=== PATIENT | female | born 1970 | race Caucasian/White ===

== ENCOUNTER 2016-09-24 07:31 | Outpatient (RCR) | payer MEDICARE, OTHER ==
[2016-08-14 12:44] VITALS: BP 108/78
[2016-08-14 13:24] LABS: MEAN PLATELET VOLUME 10.7 FL (7.4-10.4); RED BLOOD COUNT 4.26 10^6/uL (4.35-5.85); RED CELL DISTRIBUTION WIDTH 13.1 % (10.0-14.5); WHITE BLOOD COUNT 11.5 10^3/uL (4.3-11.0)
[2016-08-14] MEDS: CATHETER FLUSH 10 ML SYR IV PRN ×2 (13:25→13:55)
[2016-08-14] MEDS: cefTRIAXone INJECTION 1,000 MG in NS (IVPB) 50 ML IV SCH (13:25)
[2016-08-14 13:40] LABS: BILIRUBIN,URINE NEGATIVE (NEGATIVE); KETONES,URINE NEGATIVE (NEGATIVE); LEUKOCYTE ESTERASE ,URINE 1+ (NEGATIVE); NITRITE,URINE NEGATIVE (NEGATIVE); PH,URINE 5 (5-9); PROTEIN,URINE NEGATIVE (NEGATIVE); UROBILINOGEN,URINE NORMAL (NORMAL)
[2016-08-14 13:44] LABS: ALANINE AMINOTRANSFERASE 15 U/L (0-55); ALBUMIN 3.6 G/DL (3.2-4.5); ANION GAP 10 MMOL/L (5-14); ASPARTATE AMINO TRANSFERASE 13 U/L (5-34); BILIRUBIN,TOTAL 0.6 MG/DL (0.1-1.0); BLOOD UREA NITROGEN 19 MG/DL (7-18); BUN/CREATININE RATIO 24; CALCIUM 8.7 MG/DL (8.5-10.1); CARBON DIOXIDE 24 MMOL/L (21-32); CHLORIDE 108 MMOL/L (98-107); CREATININE SERUM 0.79 MG/DL (0.60-1.30); GFR ESTIMATED > 60; GLUCOSE 135 MG/DL (70-105); POTASSIUM 3.4 MMOL/L (3.6-5.0); SODIUM 142 MMOL/L (135-145); TOTAL PROTEIN 6.6 G/DL (6.4-8.2)
[2016-08-14 13:49] LABS: SQUAMOUS EPITHELIAL CELL,UR 0-2 /HPF; WBC,URINE RARE /HPF
[2016-08-15] MEDS: CATHETER FLUSH 10 ML SYR IV PRN ×2 (07:53→08:20)
[2016-08-15] MEDS: cefTRIAXone INJECTION 1,000 MG in NS (IVPB) 50 ML IV SCH (07:53)
[2016-08-15 08:30] VITALS: BP 109/74
[2016-08-16] MEDS: CATHETER FLUSH 10 ML SYR IV PRN ×2 (07:50→08:30)
[2016-08-16 08:00] VITALS: BP 108/80
[2016-08-16] MEDS: cefTRIAXone INJECTION 1,000 MG in NS (IVPB) 50 ML IV SCH (08:00)
[2016-08-17 07:45] VITALS: BP 106/76
[2016-08-17] MEDS: cefTRIAXone INJECTION 1,000 MG in NS (IVPB) 50 ML IV SCH (07:50)
[2016-08-17] MEDS: CATHETER FLUSH 10 ML SYR IV PRN ×2 (07:50→08:20)
[2016-08-18] MEDS: CATHETER FLUSH 10 ML SYR IV PRN ×2 (07:42→08:18)
[2016-08-18] MEDS: cefTRIAXone INJECTION 1,000 MG in NS (IVPB) 50 ML IV SCH (07:42)
[2016-08-18 08:45] VITALS: BP 102/77
[2016-08-19] MEDS: cefTRIAXone INJECTION 1,000 MG in NS (IVPB) 50 ML IV SCH (07:37)
[2016-08-19] MEDS: CATHETER FLUSH 10 ML SYR IV PRN ×2 (07:38→08:10)
[2016-08-19 07:50] VITALS: BP 109/81
[2016-08-20] MEDS: CATHETER FLUSH 10 ML SYR IV PRN ×2 (07:49→08:20)
[2016-08-20] MEDS: cefTRIAXone INJECTION 1,000 MG in NS (IVPB) 50 ML IV SCH (07:49)
[2016-08-20 08:02] VITALS: BP 112/78
[2016-08-21] MEDS: cefTRIAXone INJECTION 1,000 MG in NS (IVPB) 50 ML IV SCH (07:50)
[2016-08-21] MEDS: CATHETER FLUSH 10 ML SYR IV PRN ×2 (07:50→08:22)
[2016-08-21 08:25] VITALS: BP 103/81
[2016-08-21 09:07] LABS: MEAN PLATELET VOLUME 11.7 FL (7.4-10.4); RED BLOOD COUNT 4.42 10^6/uL (4.35-5.85); RED CELL DISTRIBUTION WIDTH 13.1 % (10.0-14.5); WHITE BLOOD COUNT 7.4 10^3/uL (4.3-11.0)
[2016-08-21 09:09] LABS: BILIRUBIN,URINE NEGATIVE (NEGATIVE); KETONES,URINE NEGATIVE (NEGATIVE); LEUKOCYTE ESTERASE ,URINE 1+ (NEGATIVE); NITRITE,URINE NEGATIVE (NEGATIVE); PH,URINE 7 (5-9); PROTEIN,URINE NEGATIVE (NEGATIVE); UROBILINOGEN,URINE NORMAL (NORMAL)
[2016-08-21 09:17] LABS: SQUAMOUS EPITHELIAL CELL,UR 0-2 /HPF; WBC,URINE RARE /HPF
[2016-08-21 09:21] LABS: ALANINE AMINOTRANSFERASE 17 U/L (0-55); ALBUMIN 4.2 GM/DL (3.2-4.5); ANION GAP 10 MMOL/L (5-14); ASPARTATE AMINO TRANSFERASE 14 U/L (5-34); BILIRUBIN,TOTAL 0.6 MG/DL (0.1-1.0); BLOOD UREA NITROGEN 14 MG/DL (7-18); BUN/CREATININE RATIO 18 (0-20); CALCIUM 9.4 MG/DL (8.5-10.1); CARBON DIOXIDE 27 MMOL/L (21-32); CHLORIDE 106 MMOL/L (98-107); CREATININE SERUM 0.77 MG/DL (0.60-1.30); GFR ESTIMATED > 60; HEMOLYSIS 21 (0-29); ICTERUS 0.9 (0-1.9); LIPEMIA 52 (0-49); SODIUM 143 MMOL/L (135-145); TOTAL PROTEIN 6.8 GM/DL (6.4-8.2)
[2016-08-21 09:27] LABS: GLUCOSE 57 MG/DL (70-105)
[2016-08-22] MEDS: cefTRIAXone INJECTION 1,000 MG in NS (IVPB) 50 ML IV SCH (08:00)
[2016-08-22 09:01] VITALS: BP 102/73
[2016-08-23] MEDS: CATHETER FLUSH 10 ML SYR IV PRN ×2 (09:04→09:30)
[2016-08-23] MEDS: cefTRIAXone INJECTION 1,000 MG in NS (IVPB) 50 ML IV SCH (09:05)
[2016-08-23 09:54] VITALS: BP 111/81
[2016-08-24] MEDS: CATHETER FLUSH 10 ML SYR IV PRN ×2 (08:04→08:35)
[2016-08-24] MEDS: cefTRIAXone INJECTION 1,000 MG in NS (IVPB) 50 ML IV SCH (08:05)
[2016-08-24 08:43] VITALS: BP 92/73
[2016-08-25] MEDS: CATHETER FLUSH 10 ML SYR IV PRN ×2 (08:03→08:33)
[2016-08-25] MEDS: cefTRIAXone INJECTION 1,000 MG in NS (IVPB) 50 ML IV SCH (08:03)
[2016-08-25 08:36] VITALS: BP 100/74
[2016-08-26] MEDS: cefTRIAXone INJECTION 1,000 MG in NS (IVPB) 50 ML IV SCH (07:48)
[2016-08-26] MEDS: CATHETER FLUSH 10 ML SYR IV PRN (07:48)
[2016-08-26 07:59] VITALS: BP 98/74
[2016-08-27] MEDS: CATHETER FLUSH 10 ML SYR IV PRN (08:05)
[2016-08-27] MEDS: cefTRIAXone INJECTION 1,000 MG in NS (IVPB) 50 ML IV SCH (08:05)
[2016-08-27 08:45] VITALS: BP 110/70
[2016-08-28 07:53] LABS: BILIRUBIN,URINE NEGATIVE (NEGATIVE); KETONES,URINE NEGATIVE (NEGATIVE); LEUKOCYTE ESTERASE ,URINE NEGATIVE (NEGATIVE); NITRITE,URINE NEGATIVE (NEGATIVE); PH,URINE 6 (5-9); PROTEIN,URINE NEGATIVE (NEGATIVE); UROBILINOGEN,URINE NORMAL (NORMAL)
[2016-08-28 08:00] VITALS: BP 120/87
[2016-08-28 08:00] LABS: SQUAMOUS EPITHELIAL CELL,UR RARE /HPF
[2016-08-28 08:01] LABS: MEAN PLATELET VOLUME 10.6 FL (7.4-10.4); RED BLOOD COUNT 4.12 10^6/uL (4.35-5.85); RED CELL DISTRIBUTION WIDTH 12.6 % (10.0-14.5); WHITE BLOOD COUNT 5.6 10^3/uL (4.3-11.0)
[2016-08-28 08:21] LABS: ALANINE AMINOTRANSFERASE 16 U/L (0-55); ALBUMIN 3.9 GM/DL (3.2-4.5); ANION GAP 9 MMOL/L (5-14); ASPARTATE AMINO TRANSFERASE 14 U/L (5-34); BILIRUBIN,TOTAL 0.6 MG/DL (0.1-1.0); BLOOD UREA NITROGEN 16 MG/DL (7-18); BUN/CREATININE RATIO 20 (0-20); CALCIUM 9.3 MG/DL (8.5-10.1); CARBON DIOXIDE 28 MMOL/L (21-32); CHLORIDE 105 MMOL/L (98-107); CREATININE SERUM 0.79 MG/DL (0.60-1.30); GFR ESTIMATED > 60; GLUCOSE 77 MG/DL (70-105); HEMOLYSIS 6 (-100-29); ICTERUS 0.9 (-100-1.9); LIPEMIA 6 (-100-49); POTASSIUM 3.9 MMOL/L (3.6-5.0); SODIUM 142 MMOL/L (135-145); TOTAL PROTEIN 6.8 GM/DL (6.4-8.2)
[2016-08-29] MEDS: cefTRIAXone INJECTION 1,000 MG in NS (IVPB) 50 ML IV SCH (07:52)
[2016-08-29] MEDS: CATHETER FLUSH 10 ML SYR IV PRN ×2 (07:52→08:20)
[2016-08-29 08:20] VITALS: BP 108/76
[2016-08-30] MEDS: CATHETER FLUSH 10 ML SYR IV PRN ×2 (08:00→08:28)
[2016-08-30] MEDS: cefTRIAXone INJECTION 1,000 MG in NS (IVPB) 50 ML IV SCH (08:01)
[2016-08-30 08:30] VITALS: BP 126/91
[2016-08-31] MEDS: CATHETER FLUSH 10 ML SYR IV PRN ×2 (07:32→08:03)
[2016-08-31] MEDS: cefTRIAXone INJECTION 1,000 MG in NS (IVPB) 50 ML IV SCH (07:33)
[2016-08-31 08:05] VITALS: BP 115/79
[2016-09-01] MEDS: cefTRIAXone INJECTION 1,000 MG in NS (IVPB) 50 ML IV SCH ×2 (07:55→07:58)
[2016-09-01] MEDS: CATHETER FLUSH 10 ML SYR IV PRN ×2 (07:58→08:28)
[2016-09-01 08:30] VITALS: BP 104/71
[2016-09-02] MEDS: CATHETER FLUSH 10 ML SYR IV PRN ×2 (07:49→08:20)
[2016-09-02] MEDS: cefTRIAXone INJECTION 1,000 MG in NS (IVPB) 50 ML IV SCH (07:50)
[2016-09-02 08:20] VITALS: BP 112/79
[2016-09-03] MEDS: CATHETER FLUSH 10 ML SYR IV PRN ×2 (07:52→08:21)
[2016-09-03] MEDS: cefTRIAXone INJECTION 1,000 MG in NS (IVPB) 50 ML IV SCH (07:54)
[2016-09-03 08:22] VITALS: BP 100/77
[2016-09-04] MEDS: cefTRIAXone INJECTION 1,000 MG in NS (IVPB) 50 ML IV SCH (07:46)
[2016-09-04] MEDS: CATHETER FLUSH 10 ML SYR IV PRN ×2 (07:46→08:10)
[2016-09-04 07:57] LABS: MEAN PLATELET VOLUME 10.4 FL (7.4-10.4); RED BLOOD COUNT 4.43 10^6/uL (4.35-5.85); RED CELL DISTRIBUTION WIDTH 13.1 % (10.0-14.5); WHITE BLOOD COUNT 6.8 10^3/uL (4.3-11.0)
[2016-09-04 08:15] VITALS: BP 111/76
[2016-09-04 08:30] LABS: ALANINE AMINOTRANSFERASE 14 U/L (0-55); ALBUMIN 4.1 GM/DL (3.2-4.5); ANION GAP 12 MMOL/L (5-14); ASPARTATE AMINO TRANSFERASE 16 U/L (5-34); BILIRUBIN,TOTAL 0.6 MG/DL (0.1-1.0); BLOOD UREA NITROGEN 15 MG/DL (7-18); BUN/CREATININE RATIO 19; CALCIUM 9.4 MG/DL (8.5-10.1); CARBON DIOXIDE 25 MMOL/L (21-32); CHLORIDE 105 MMOL/L (98-107); GFR ESTIMATED > 60; GLUCOSE 78 MG/DL (70-105); SODIUM 142 MMOL/L (135-145); TOTAL PROTEIN 7.2 GM/DL (6.4-8.2)
[2016-09-05] MEDS: CATHETER FLUSH 10 ML SYR IV PRN ×2 (07:45→08:11)
[2016-09-05] MEDS: cefTRIAXone INJECTION 1,000 MG in NS (IVPB) 50 ML IV SCH (07:46)
[2016-09-05 08:12] VITALS: BP 104/80
[2016-09-06] MEDS: CATHETER FLUSH 10 ML SYR IV PRN ×2 (07:58→08:25)
[2016-09-06] MEDS: cefTRIAXone INJECTION 1,000 MG in NS (IVPB) 50 ML IV SCH (07:58)
[2016-09-06 08:15] VITALS: BP 112/84
[2016-09-07] MEDS: CATHETER FLUSH 10 ML SYR IV PRN ×2 (07:29→07:57)
[2016-09-07] MEDS: cefTRIAXone INJECTION 1,000 MG in NS (IVPB) 50 ML IV SCH (07:29)
[2016-09-07 07:38] VITALS: BP 116/82
[2016-09-08] MEDS: cefTRIAXone INJECTION 1,000 MG in NS (IVPB) 50 ML IV SCH (08:00)
[2016-09-08] MEDS: CATHETER FLUSH 10 ML SYR IV PRN ×2 (08:00→08:25)
[2016-09-08 08:55] VITALS: BP 112/79
[2016-09-09 07:50] VITALS: BP 113/79
[2016-09-09] MEDS: CATHETER FLUSH 10 ML SYR IV PRN ×2 (08:00→08:20)
[2016-09-09] MEDS: cefTRIAXone INJECTION 1,000 MG in NS (IVPB) 50 ML IV SCH (08:00)
[2016-09-10 07:38] VITALS: BP 115/77
[2016-09-10] MEDS: cefTRIAXone INJECTION 1,000 MG in NS (IVPB) 50 ML IV SCH (07:53)
[2016-09-10] MEDS: CATHETER FLUSH 10 ML SYR IV PRN ×2 (07:54→08:20)
[2016-09-11] MEDS: cefTRIAXone INJECTION 1,000 MG in NS (IVPB) 50 ML IV SCH (07:56)
[2016-09-11] MEDS: CATHETER FLUSH 10 ML SYR IV PRN (07:56)
[2016-09-11 08:20] LABS: MEAN PLATELET VOLUME 10.9 FL (7.4-10.4); RED BLOOD COUNT 4.35 10^6/uL (4.35-5.85); RED CELL DISTRIBUTION WIDTH 12.7 % (10.0-14.5); WHITE BLOOD COUNT 5.1 10^3/uL (4.3-11.0)
[2016-09-11 08:36] VITALS: BP 107/77
[2016-09-11 08:36] LABS: ALANINE AMINOTRANSFERASE 16 U/L (0-55); ALBUMIN 4.1 GM/DL (3.2-4.5); ANION GAP 9 MMOL/L (5-14); ASPARTATE AMINO TRANSFERASE 16 U/L (5-34); BILIRUBIN,TOTAL 0.7 MG/DL (0.1-1.0); BLOOD UREA NITROGEN 14 MG/DL (7-18); BUN/CREATININE RATIO 17; CALCIUM 9.5 MG/DL (8.5-10.1); CARBON DIOXIDE 26 MMOL/L (21-32); CHLORIDE 106 MMOL/L (98-107); CREATININE SERUM 0.84 MG/DL (0.60-1.30); GFR ESTIMATED > 60; GLUCOSE 109 MG/DL (70-105); MAGNESIUM 2.4 MG/DL (1.8-2.4); POTASSIUM 4.2 MMOL/L (3.6-5.0); SODIUM 141 MMOL/L (135-145); TOTAL PROTEIN 7.3 GM/DL (6.4-8.2)
[2016-09-11 09:04] LABS: BILIRUBIN,URINE NEGATIVE (NEGATIVE); KETONES,URINE NEGATIVE (NEGATIVE); LEUKOCYTE ESTERASE ,URINE NEGATIVE (NEGATIVE); NITRITE,URINE NEGATIVE (NEGATIVE); PH,URINE 6 (5-9); PROTEIN,URINE NEGATIVE (NEGATIVE); UROBILINOGEN,URINE NORMAL (NORMAL)
[2016-09-11 09:13] LABS: SQUAMOUS EPITHELIAL CELL,UR RARE /HPF
[2016-09-12] MEDS: CATHETER FLUSH 10 ML SYR IV PRN (07:59)
[2016-09-12] MEDS: cefTRIAXone INJECTION 1,000 MG in NS (IVPB) 50 ML IV SCH (07:59)
[2016-09-12 08:33] VITALS: BP 119/82
[2016-09-13 08:00] VITALS: BP 104/80
[2016-09-13] MEDS: CATHETER FLUSH 10 ML SYR IV PRN (08:21)
[2016-09-13] MEDS: cefTRIAXone INJECTION 1,000 MG in NS (IVPB) 50 ML IV SCH (08:22)
[2016-09-14] MEDS: CATHETER FLUSH 10 ML SYR IV PRN ×2 (08:09→08:37)
[2016-09-14] MEDS: cefTRIAXone INJECTION 1,000 MG in NS (IVPB) 50 ML IV SCH (08:10)
[2016-09-14 08:16] VITALS: BP 98/72
[2016-09-15] MEDS: CATHETER FLUSH 10 ML SYR IV PRN ×2 (07:59→08:26)
[2016-09-15 08:28] VITALS: BP 108/72
[2016-09-16] MEDS: cefTRIAXone INJECTION 1,000 MG in NS (IVPB) 50 ML IV SCH (08:03)
[2016-09-16] MEDS: CATHETER FLUSH 10 ML SYR IV PRN ×2 (08:03→08:28)
[2016-09-16 09:27] VITALS: BP 103/69
[2016-09-17] MEDS: CATHETER FLUSH 10 ML SYR IV PRN ×2 (07:40→08:06)
[2016-09-17] MEDS: cefTRIAXone INJECTION 1,000 MG in NS (IVPB) 50 ML IV SCH (07:40)
[2016-09-17 07:52] VITALS: BP 108/72
[2016-09-18] MEDS: CATHETER FLUSH 10 ML SYR IV PRN (08:12)
[2016-09-18] MEDS: cefTRIAXone INJECTION 1,000 MG in NS (IVPB) 50 ML IV SCH (08:12)
[2016-09-18 08:22] LABS: BILIRUBIN,URINE NEGATIVE (NEGATIVE); KETONES,URINE NEGATIVE (NEGATIVE); LEUKOCYTE ESTERASE ,URINE NEGATIVE (NEGATIVE); NITRITE,URINE NEGATIVE (NEGATIVE); PH,URINE 6.5 (5-9); PROTEIN,URINE NEGATIVE (NEGATIVE); UROBILINOGEN,URINE NORMAL (NORMAL)
[2016-09-18 08:27] LABS: MEAN PLATELET VOLUME 10.7 FL (7.4-10.4); RED BLOOD COUNT 4.01 10^6/uL (4.35-5.85); RED CELL DISTRIBUTION WIDTH 12.6 % (10.0-14.5); WHITE BLOOD COUNT 4.6 10^3/uL (4.3-11.0)
[2016-09-18 08:30] LABS: SQUAMOUS EPITHELIAL CELL,UR RARE /HPF
[2016-09-18 08:40] LABS: ALANINE AMINOTRANSFERASE 15 U/L (0-55); ALBUMIN 3.8 GM/DL (3.2-4.5); ANION GAP 8 MMOL/L (5-14); ASPARTATE AMINO TRANSFERASE 16 U/L (5-34); BILIRUBIN,TOTAL 0.6 MG/DL (0.1-1.0); BLOOD UREA NITROGEN 15 MG/DL (7-18); BUN/CREATININE RATIO 19; CARBON DIOXIDE 26 MMOL/L (21-32); CHLORIDE 107 MMOL/L (98-107); CREATININE SERUM 0.79 MG/DL (0.60-1.30); GFR ESTIMATED > 60; GLUCOSE 111 MG/DL (70-105); MAGNESIUM 2.1 MG/DL (1.8-2.4); POTASSIUM 4.2 MMOL/L (3.6-5.0); SODIUM 141 MMOL/L (135-145); TOTAL PROTEIN 6.7 GM/DL (6.4-8.2)
[2016-09-18 08:41] VITALS: BP 104/75
[2016-09-19] MEDS: CATHETER FLUSH 10 ML SYR IV PRN (07:44)
[2016-09-19] MEDS: cefTRIAXone INJECTION 1,000 MG in NS (IVPB) 50 ML IV SCH (07:45)
[2016-09-19 08:15] VITALS: BP 161/71
[2016-09-20] MEDS: cefTRIAXone INJECTION 1,000 MG in NS (IVPB) 50 ML IV SCH (08:05)
[2016-09-20] MEDS: CATHETER FLUSH 10 ML SYR IV PRN (08:34)
[2016-09-20 08:35] VITALS: BP 105/77
[2016-09-21] MEDS: cefTRIAXone INJECTION 1,000 MG in NS (IVPB) 50 ML IV SCH (08:03)
[2016-09-21] MEDS: CATHETER FLUSH 10 ML SYR IV PRN (08:03)
[2016-09-21 08:40] VITALS: BP 124/73
[2016-09-22] MEDS: cefTRIAXone INJECTION 1,000 MG in NS (IVPB) 50 ML IV SCH (07:57)
[2016-09-22] MEDS: CATHETER FLUSH 10 ML SYR IV PRN (07:57)
[2016-09-22 08:01] VITALS: BP 105/78
[2016-09-23] MEDS: CATHETER FLUSH 10 ML SYR IV PRN ×2 (07:53→08:24)
[2016-09-23] MEDS: cefTRIAXone INJECTION 1,000 MG in NS (IVPB) 50 ML IV SCH (07:53)
[2016-09-23 08:06] VITALS: BP 109/73
[~2016-09-24] VITALS: Ht 154.9 cm; Wt 74.8 kg
[~2016-09-24 07:31] MED LIST: AMIT25TA9 PO; AMOX500C2 PO; B12 IM; CLC500CT; D50KC PO; DCS100C PO; EST45C VG; FLC100T1 PO; FURO40TA4 PO; HYDR-3583 PO; HYDR10TA13 PO; HYDR5TAB2 PO; LEVO750T24 PO; LIPA1CAP2 PO; LIPA1CAP4 PO; LNZ600T PO; LORA1TAB PO; METR500T PO; MULTIVITAMIN; Motilium PO; NS (IVPB) 50 ML ONE; OMEP20CA12 PO; ONDA8TAB9 PO; ONDAN4ODT PO; PNT40TEC; PNT40TEC PO; Potassium Chloride PO; SCP1.5TD TD; SIME125C PO; TRAM50TA2 PO; [UNRECOGNIZED DRUG - OTHER] IV; [UNRECOGNIZED DRUG - OTHER] PO; cefTRIAXone 1 GM (ROCEPHIN) VIAL ONE
[2016-09-24] MEDS: CATHETER FLUSH 10 ML SYR IV PRN (07:40)
[2016-09-24] MEDS: cefTRIAXone INJECTION 1,000 MG in NS (IVPB) 50 ML IV SCH (07:40)
[2016-09-24 08:47] VITALS: BP 106/72
== END 2016-11-12 | disposition home or self-care (01) ==
LOC: SDC 07:31
PROVIDERS: ATTEND Nurse Practitioner Family
DX: A77.40 Ehrlichiosis, unspecified (principal); K31.84 Gastroparesis
CPT/HCPCS: 36415; 36569; 36592; 76937; 80053; 81000; 83735; 85027; 96365; 99211

== ENCOUNTER → 2017-03-27 | Outpatient (CLI) | payer MEDICARE, OTHER ==
[~2017-03-27] VITALS: Ht 154.9 cm; Wt 74.8 kg
[~2017-03-27] MED LIST changes: +LACTATED RINGERS 1,000 ML IV SCH; +LACTATED RINGERS 2,000 ML IV ONE; -NS (IVPB) 50 ML ONE; -cefTRIAXone 1 GM (ROCEPHIN) VIAL ONE
[2017-03-27 09:26] VITALS: BP 122/86
[2017-03-27 11:32] VITALS: BP 122/86
== END ==
LOC: SDC 08:53
PROVIDERS: ATTEND Nurse Practitioner Family
DX: E86.0 Dehydration (principal)
CPT/HCPCS: 96360; 96361

== ENCOUNTER 2018-11-05 12:07 | Emergency (ER) | payer MEDICARE ==
[~2018-11-05] VITALS: Ht 154.9 cm; Wt 78.5 kg
[~2018-11-05 12:07] MED LIST changes: -LACTATED RINGERS 1,000 ML IV SCH; -LACTATED RINGERS 2,000 ML IV ONE
[2018-11-05] MEDS ORDERED: PROCHLORPERAZINE 10 MG/2ML INJ (COMPAZINE) IV ONE (12:30)
[2018-11-05] MEDS ORDERED: diphenhydrAMINE 50 MG/ML INJ (BENADRYL) IVP ONE (12:30)
[2018-11-05] MEDS ORDERED: KETOROLAC 30 MG/ML VIAL IVP ONE (12:30)
[2018-11-05 12:56] LABS: BASOPHILS % (AUTO) 0 % (0-10); EOSINOPHILS % (AUTO) 0 % (0-10); HEMATOCRIT 40 % (35-52); HEMOGLOBIN 13.6 G/DL (11.5-16.0); LYMPHOCYTES # (AUTO) 0.8 X 10^3 (1.0-4.0); LYMPHOCYTES % (AUTO) 6 % (12-44); MEAN CORPUSCULAR HEMOGLOBIN 31 PG (25-34); MEAN CORPUSCULAR HGB CONC 34 G/DL (32-36); MEAN CORPUSCULAR VOLUME 91 FL (80-99); MEAN PLATELET VOLUME 10.9 FL (7.4-10.4); MONOCYTES # (AUTO) 0.4 X 10^3 (0.0-1.0); MONOCYTES % (AUTO) 3 % (0-12); NEUTROPHILS # (AUTO) 13.1 X 10^3 (1.8-7.8); NEUTROPHILS % (AUTO) 92 % (42-75); PLATELET COUNT 328 10^3/uL (130-400); RED CELL DISTRIBUTION WIDTH 12.9 % (10.0-14.5); WHITE BLOOD COUNT 14.4 10^3/uL (4.3-11.0)
--- NOTE | 2018-11-05 12:59 | ED General ---
General Chief Complaint: General Problems/Pain Stated Complaint: HEADACHE;NAUSEA;SHAKES Nursing Triage Note: Patient ambulatory to ER with complaint of Dewey's disease flair up. Patient states she went over to ER by Dr. Maldonado's office. She states since yesterday she has had a headache, dizziness, nausea, and feels like she is shaking on the inside. Patient has been taking her dexamethasone injections but it does not seem to be helping the symptoms. her last injection was around 10:00 AM today. Nursing Sepsis Screen: No Definite Risk Source of Information: Patient Exam Limitations: No Limitations History of Present Illness Date Seen by Provider: Nov 05, 2018 Time Seen by Provider: 12:56 Initial Comments To ER with reports of suspected "Dewey's crisis". Patient has Kobe's disease, takes dexamethasone daily because the hydrocortisone "wasnt working". She awakened this morning with headache, nausea, shakiness, called primary care who suggested she be evaluated in the emergency room. She denies fevers chills or recent illness. She did have her morning dose of dexamethasone. Blood pressure on arrival 141/97. Alert and oriented mentating well. Timing/Duration: 1-2 Days Severity: Moderate Associated Systoms: Headaches, Nausea/Vomiting Allergies and Home Medications Allergies Coded Allergies: adhesive tape (Verified Allergy, Intermediate, RASH, 04/02/11) Penicillins (Verified Allergy, Unknown, 01/09/15) hydrocodone (Verified Allergy, Unknown, 02/18/13) linezolid (Unverified Allergy, Unknown, N/V, 09/30/13) oxycodone (Unverified Adverse Reaction, Unknown, NAUSEA AND VOMITING, 09/30/13) oxycodone HCl (Unverified Adverse Reaction, Unknown, NAUSEA AND VOMITING, 09/30/13) Home Medications Amylase/Lipase/Protease 1 Each Capsule.dr, 24,000 UNIT PO WITH MEALS, (Reported) Docusate Sodium 100 Mg Capsule, 100 MG PO BID Prescribed by: ANNE HUDSON on 09/30/131816 Hydrocortisone 10 Mg Tablet, 10 MG PO BID, (Reported) in the am and in pm Hydrocortisone 5 Mg Tablet, 5 MG PO DAILY, (Reported) at noon Ondansetron 8 Mg Tab.rapdis, 8 MG PO Q4H PRN for NAUSEA/VOMITING Prescribed by: ANNE HUDSON on 01/09/15 1432 Ondansetron Hcl 4 Mg Tab, 8 MG PO Q4H PRN, (Reported) nausea Simethicone 125 Mg Capsule, 125 MG PO DAILY PRN for GAS Prescribed by: OSMEL MUNOZ on 02/18/13 1050 [B12] , 1 ML IM WEEKLY, (Reported) [Flutocortisone] , 0.1 MG PO HS, (Reported) [Multivitamin Infusio] , IV WEEKLY, (Reported) [Potassium Chloride ] , 20 MEQ PO DAILY, (Reported) with Lasix Patient Home Medication List Home Medication List Reviewed: Yes Review of Systems Review of Systems Constitutional: see HPI EENTM: see HPI Respiratory: no symptoms reported Cardiovascular: no symptoms reported Genitourinary: no symptoms reported Musculoskeletal: no symptoms reported Skin: no symptoms reported Psychiatric/Neurological: No Symptoms Reported Hematologic/Lymphatic: No Symptoms Reported Immunological/Allergic: no symptoms reported Past Ztuvevx-Skqogm-Zoxssw Hx Patient Social History Alcohol Use: Rarely Uses Recreational Drug Use: No Smoking Status: Never a Smoker 2nd Hand Smoke Exposure: No Recent Foreign Travel: No Contact w/Someone Who Travel: No Recent Infectious Disease Expo: No Recent Hopitalizations: Yes (see systems) Immunizations Up To Date Date of Pneumonia Vaccine: Dec 07, 2010 Date of Influenza Vaccine: Dec 07, 2012 Seasonal Allergies Seasonal Allergies: No Past Medical History Surgeries: Yes (NOSE BREAST REDUCTION STENT PANCERS, L5-L5 laminectomy) Appendectomy, Gallbladder, Hysterectomy, Oophorectomy, Tonsillectomy, Tubal Ligation Respiratory: No Cardiac: No Neurological: No Reproductive Disorders: Yes [employer] History: Hysterectomy Sexually Transmitted Disease: No Gastrointestinal: Yes (AUTOIMUNOTOPIC GASTRITIS) Musculoskeletal: Yes Endocrine: Yes (Kobe's, Lyme's disease, [place] Anemia, ) Cancer: No Psychosocial: No Blood Disorders: No Physical Exam Vital Signs Vital Signs - First Documented 11/05/18 12:28 Temp 97.3 Pulse 83 Resp 14 B/P (MAP) 125/85 (98) Pulse Ox 98 O2 Delivery Room Air Capillary Refill : Less Than 3 Seconds Height, Weight, BMI Height: 5'1.00" Weight: 173lbs. 0.0oz. [id number]; 31.2 BMI Method:Stated General Appearance: No Apparent Distress, WD/WN, Other (raspy voice) Eyes: Bilateral Eye Normal Inspection, Bilateral Eye PERRL, Bilateral Eye EOMI HEENT: PERRL/EOMI, TMs Normal Neck: Full Range of Motion, Normal Inspection Respiratory: No Accessory Muscle Use, No Respiratory Distress Cardiovascular: Regular Rate, Rhythm, Normal Peripheral Pulses Gastrointestinal: Normal Bowel Sounds, Non Tender, Soft Extremity: Normal Capillary Refill, Normal Inspection Neurologic/Psychiatric: Alert, Oriented x3 Skin: Normal Color, Warm/Dry Progress/Results/Core Measures Suspected Sepsis Recent Fever Within 48 Hours: No Infection Criteria Present: None New/Unexplained Altered Menta: No Sepsis Screen: No Definite Risk SIRS Temperature:97.3 Pulse: 83 Respiratory Rate: 14 Laboratory Tests 11/05/18 12:43: White Blood Count 14.4H Blood Pressure 125 /85 Mean: 98 Laboratory Tests 11/05/18 12:43: Creatinine 0.84, Platelet Count 328, Total Bilirubin 0.3 Results/Orders Lab Results Laboratory Tests Test 11/05/18 12:43 11/05/18 12:57 Range/Units White Blood Count 14.4 H 4.3-11.0 10^3/uL Red Blood Count 4.38 4.35-5.85 10^6/uL Hemoglobin 13.6 11.5-16.0 G/DL Hematocrit 40 35-52 % Mean Corpuscular Volume 91 80-99 FL Mean Corpuscular Hemoglobin 31 25-34 PG Mean Corpuscular Hemoglobin Concent 34 32-36 G/DL Red Cell Distribution Width 12.9 10.0-14.5 % Platelet Count 328 130-400 10^3/uL Mean Platelet Volume 10.9 H 7.4-10.4 FL Neutrophils (%) (Auto) 92 H 42-75 % Lymphocytes (%) (Auto) 6 L 12-44 % Monocytes (%) (Auto) 3 0-12 % Eosinophils (%) (Auto) 0 0-10 % Basophils (%) (Auto) 0 0-10 % Neutrophils # (Auto) 13.1 H 1.8-7.8 X 10^3 Lymphocytes # (Auto) 0.8 L 1.0-4.0 X 10^3 Monocytes # (Auto) 0.4 0.0-1.0 X 10^3 Eosinophils # (Auto) 0.0 0.0-0.3 10^3/uL Basophils # (Auto) 0.0 0.0-0.1 10^3/uL Neutrophils % (Manual) 92 % Lymphocytes % (Manual) 3 % Monocytes % (Manual) 5 % Blood Morphology Comment NORMAL Sodium Level 140 135-145 MMOL/L Potassium Level 4.2 3.6-5.0 MMOL/L Chloride Level 105 98-107 MMOL/L Carbon Dioxide Level 22 21-32 MMOL/L Anion Gap 13 5-14 MMOL/L Blood Urea Nitrogen 19 H 7-18 MG/DL Creatinine 0.84 0.60-1.30 MG/DL Estimat Glomerular Filtration Rate > 60 BUN/Creatinine Ratio 23 Glucose Level 124 H 70-105 MG/DL Calcium Level 9.9 8.5-10.1 MG/DL Corrected Calcium 8.5-10.1 MG/DL Total Bilirubin 0.3 0.1-1.0 MG/DL Aspartate Amino Transf (AST/SGOT) 15 5-34 U/L Alanine Aminotransferase (ALT/SGPT) 22 0-55 U/L Alkaline Phosphatase 54 40-136 U/L Total Protein 7.7 6.4-8.2 GM/DL Albumin 4.6 H 3.2-4.5 GM/DL Thyroid Stimulating Hormone (TSH) 0.42 0.35-4.94 UIU/ML Urine Color YELLOW Urine Clarity CLEAR Urine pH 5 5-9 Urine Specific [place] 1.025 H 1.016-1.022 Urine Protein NEGATIVE NEGATIVE Urine Glucose (UA) NEGATIVE NEGATIVE Urine Ketones NEGATIVE NEGATIVE Urine Nitrite NEGATIVE NEGATIVE Urine Bilirubin NEGATIVE NEGATIVE Urine Urobilinogen NORMAL NORMAL MG/DL Urine Leukocyte Esterase NEGATIVE NEGATIVE Urine RBC (Auto) NEGATIVE NEGATIVE Urine RBC NONE /HPF Urine WBC NONE /HPF Urine Squamous Epithelial Cells RARE /HPF Urine Crystals NONE /LPF Urine Bacteria NEGATIVE /HPF Urine Casts NONE /LPF Urine Mucus NEGATIVE /LPF Urine Culture Indicated NO My Orders Orders - ANNE HUDSON PRIMARY CLINICIAN Cbc With Automated Diff (11/05/18 12:27) Thyroid Stimulating Hormone (11/05/18 12:27) Comprehensive Metabolic Panel (11/05/18 12:27) Ua Culture If Indicated (11/05/18 12:27) Ed Iv/Invasive Line Start (11/05/18 12:27) Diphenhydramine Injection (Benadryl Inje (11/05/18 12:30) Ketorolac Injection (Toradol Injection) (11/05/18 12:30) Prochlorperazine Injection (Compazine In (11/05/18 12:30) Manual Differential (11/05/18 12:43) Dexamethasone Injection (Decadron Inject (11/05/18 13:00) Ns Iv 1000 Ml (Sodium Chloride 0.9%) (11/05/18 13:00) Medications Given in ED Current Medications Medications Dose Ordered Sig/Alyssa Route Start Time Stop Time Status Last Admin Dose Admin Dexamethasone Sodium Phosphate 10 mg ONCE ONCE IV 11/05/18 13:00 11/05/18 13:01 DC 11/05/18 13:11 10 MG Diphenhydramine HCl 25 mg ONCE ONCE IVP 11/05/18 12:30 11/05/18 12:31 DC 11/05/18 12:51 25 MG Ketorolac Tromethamine 15 mg ONCE ONCE IVP 11/05/18 12:30 11/05/18 12:31 DC 11/05/18 12:59 15 MG Prochlorperazine Edisylate 5 mg ONCE ONCE IV 11/05/18 12:30 11/05/18 12:31 DC 11/05/18 12:55 5 MG Vital Signs/I&O 11/05/18 12:28 Temp 97.3 Pulse 83 Resp 14 B/P (MAP) 125/85 (98) Pulse Ox 98 O2 Delivery Room Air Capillary Refill : Less Than 3 Seconds Blood Pressure Mean: 98 Departure Communication (Admissions) 1410-feeling much better, we will discharge to home. Impression Primary Impression: Headache Additional Impression: Shakiness Disposition: HOME, SELF-CARE Condition: Stable Departure-Patient Inst. Decision time for Depature: 13:43 Referrals: TONEY MALDONADO DO (PCP/Family) Primary Care Physician Patient Instructions: Headache, Adult (DC) Add. Discharge Instructions: 1. Return to ER for any concerns 2. Follow-up with Dr. Maldonado on Thursday or Thursday.All discharge instructions reviewed with patient and/or family. Voiced understanding. ANNE HUDSON APRN Nov 05, 2018 12:59
[2018-11-05] MEDS ORDERED: DEXAMETHASONE 10 MG/ML (DECADRON) 1 ML VIAL IV ONE (13:00)
[2018-11-05] MEDS ORDERED: NS IV 1000 ML 1,000 ML IV SCH (13:00)
[2018-11-05 13:15] LABS: BILIRUBIN,URINE NEGATIVE (NEGATIVE); CLARITY,URINE CLEAR; COLOR,URINE YELLOW; GLUCOSE, URINE (UA) NEGATIVE (NEGATIVE); KETONES,URINE NEGATIVE (NEGATIVE); LEUKOCYTE ESTERASE ,URINE NEGATIVE (NEGATIVE); NITRITE,URINE NEGATIVE (NEGATIVE); PH,URINE 5 (5-9); PROTEIN,URINE NEGATIVE (NEGATIVE); UROBILINOGEN,URINE NORMAL (NORMAL)
[2018-11-05 13:16] LABS: ALANINE AMINOTRANSFERASE 22 U/L (0-55); ALBUMIN 4.6 GM/DL (3.2-4.5); ALKALINE PHOSPHATASE 54 U/L (40-136); BILIRUBIN,TOTAL 0.3 MG/DL (0.1-1.0); BUN/CREATININE RATIO 23; CALCIUM 9.9 MG/DL (8.5-10.1); CARBON DIOXIDE 22 MMOL/L (21-32); CHLORIDE 105 MMOL/L (98-107); CREATININE SERUM 0.84 MG/DL (0.60-1.30); GFR ESTIMATED > 60; GLUCOSE 124 MG/DL (70-105); POTASSIUM 4.2 MMOL/L (3.6-5.0); SODIUM 140 MMOL/L (135-145); TOTAL PROTEIN 7.7 GM/DL (6.4-8.2)
[2018-11-05 13:23] LABS: BACTERIA,URINE NEGATIVE /HPF; SQUAMOUS EPITHELIAL CELL,UR RARE /HPF
[2018-11-05 14:02] LABS: LYMPHOCYTES % (MANUAL) 3 %; MONOCYTES % (MANUAL) 5 %; NEUTROPHILS % (MANUAL) 92 %; RBC MORPH NORMAL
[2018-11-05 14:09] VITALS: BP 122/81
--- NOTE | 2018-11-05 14:09 | NUR ---
PATIENT STATES SHE IS FEELING MUCH BETTER AND SHE DENIES ANY PAIN AT TIME OF DISCHARGE.
== END 2018-11-05 14:11 | disposition home or self-care (01) ==
LOC: EDUNIT# 12:07 → ER 12:08
DX: R51 Headache (principal); R25.9 Unspecified abnormal involuntary movements; E27.1 Primary adrenocortical insufficiency; Z88.8 Allergy status to other drugs, medicaments and biological substances; Z88.0 Allergy status to penicillin; Z88.5 Allergy status to narcotic agent; Z90.49 Acquired absence of other specified parts of digestive tract; Z90.710 Acquired absence of both cervix and uterus; Z90.89 Acquired absence of other organs; Z98.51 Tubal ligation status
CPT/HCPCS: 36415; 80053; 81000; 84443; 85007; 85027